=== PATIENT | female | born 1965 | race Caucasian/White ===

== ENCOUNTER 2020-04-28 11:34 | Inpatient (IN) | payer OTHER, MEDICAID ==
[~2020-04-28] VITALS: Ht 162.6 cm; Wt 89.4 kg
[2020-04-28] MEDS ORDERED: HALOPERIDOL LACTATE 5 MG/ML VIAL IM ONE (12:15)
[2020-04-28] MEDS ORDERED: LORazepam 2 MG/ML VIAL IM ONE (12:15)
[2020-04-28] MEDS ORDERED: GuaiFENesin/D-METHORPHAN [SUGAR-FREE] 200-20MG/10 ML SYRUP UDCUP PO PRN (14:00)
[2020-04-28] MEDS ORDERED: MAG HYDROX/AL HYDROX/SIMETH ES 30 ML SUSPENSION UDCUP PO PRN (14:00)
[2020-04-28] MEDS ORDERED: ZOLPIDEM TARTRATE 10 MG TABLET PO PRN (14:00)
[2020-04-28] MEDS ORDERED: HydrOXYzine PAMOATE 50 MG CAPSULE PO PRN (14:00)
[2020-04-28] MEDS ORDERED: MAGNESIUM HYDROXIDE SUSPENSION 30 ML UDCUP PO PRN (14:00)
[2020-04-28] MEDS ORDERED: LORazepam 2 MG TABLET PO PRN (14:00)
[2020-04-28] MEDS ORDERED: ACETAMINOPHEN 325 MG TABLET PO PRN (14:00)
[2020-04-28] MEDS ORDERED: OLANZapine 5 MG RAPDIS TABLET PO PRN (14:00)
[2020-04-28] MEDS ORDERED: PROMETHAZINE HCL 25 MG TABLET PO PRN (14:00)
[2020-04-28] MEDS ORDERED: TUBERCULIN, PURIFIED PROTEIN DERIVATIVE 5 TU/0.1 ML SYRINGE ID ONE (14:00)
[2020-04-28] MEDS ORDERED: LOPERAMIDE HCL 2 MG CAPSULE PO PRN (14:00)
[2020-04-28] MEDS ORDERED: PNEUMOCOCCAL VACCINE POLYVALENT 0.5 ML VIAL [PPSV23] IM ONE (16:15)
[2020-04-28] MEDS: THIAMINE 100 MG TABLET PO SCH (17:00)
[2020-04-28 17:35] VITALS: BP 123/81
[2020-04-28] MEDS: OLANZapine 5 MG RAPDIS TABLET PO SCH (21:00)
[2020-04-29 01:47] VITALS: BP 110/76
[2020-04-29 08:11] VITALS: BP 134/71
[2020-04-29] MEDS: THIAMINE 100 MG TABLET PO SCH ×2 (09:00→17:00)
[2020-04-29] MEDS: MULTIVITAMINS WITH MINERALS, THERAPEUTIC TABLET PO SCH (09:00)
[2020-04-29] MEDS: FOLIC ACID 1 MG TABLET PO SCH (09:00)
[2020-04-29] MEDS: FLUoxetine HCL 20 MG CAPSULE PO SCH (09:00)
[2020-04-29] MEDS: OLANZapine 5 MG RAPDIS TABLET PO SCH (21:00)
[2020-04-30] MEDS: THIAMINE 100 MG TABLET PO SCH ×2 (08:50→17:00)
[2020-04-30] MEDS: MULTIVITAMINS WITH MINERALS, THERAPEUTIC TABLET PO SCH (08:50)
[2020-04-30] MEDS: FOLIC ACID 1 MG TABLET PO SCH (08:50)
[2020-04-30] MEDS: FLUoxetine HCL 20 MG CAPSULE PO SCH (08:50)
[2020-04-30 16:13] VITALS: BP 141/93
[2020-04-30] MEDS: OLANZapine 5 MG RAPDIS TABLET PO SCH (21:00)
[2020-05-01 05:59] VITALS: BP 128/74
[2020-05-01] MEDS: FOLIC ACID 1 MG TABLET PO SCH (09:00)
[2020-05-01] MEDS: THIAMINE 100 MG TABLET PO SCH ×2 (09:00→17:00)
[2020-05-01] MEDS: FLUoxetine HCL 20 MG CAPSULE PO SCH (09:00)
[2020-05-01] MEDS: MULTIVITAMINS WITH MINERALS, THERAPEUTIC TABLET PO SCH (09:00)
[2020-05-01] MEDS: OLANZapine 5 MG RAPDIS TABLET PO SCH (21:00)
[2020-05-02] MEDS: MULTIVITAMINS WITH MINERALS, THERAPEUTIC TABLET PO SCH (08:39)
[2020-05-02] MEDS: FLUoxetine HCL 20 MG CAPSULE PO SCH (08:39)
[2020-05-02] MEDS: FOLIC ACID 1 MG TABLET PO SCH (08:39)
[2020-05-02] MEDS: THIAMINE 100 MG TABLET PO SCH ×3 (08:39→17:00)
[2020-05-02] MEDS: OLANZapine 5 MG RAPDIS TABLET PO SCH ×2 (20:26→20:33)
[2020-05-03 01:42] VITALS: BP 144/84
[2020-05-03] MEDS: MULTIVITAMINS WITH MINERALS, THERAPEUTIC TABLET PO SCH (09:00)
[2020-05-03] MEDS: THIAMINE 100 MG TABLET PO SCH ×2 (09:00→16:38)
[2020-05-03] MEDS: FOLIC ACID 1 MG TABLET PO SCH (09:00)
[2020-05-03] MEDS: FLUoxetine HCL 20 MG CAPSULE PO SCH (09:00)
[2020-05-03] MEDS: OLANZapine 5 MG RAPDIS TABLET PO SCH (20:19)
[2020-05-04] MEDS: MULTIVITAMINS WITH MINERALS, THERAPEUTIC TABLET PO SCH (09:00)
[2020-05-04] MEDS: FLUoxetine HCL 20 MG CAPSULE PO SCH (09:00)
[2020-05-04] MEDS: FOLIC ACID 1 MG TABLET PO SCH (09:00)
[2020-05-04] MEDS: THIAMINE 100 MG TABLET PO SCH ×2 (09:00→17:00)
[2020-05-04] MEDS: OLANZapine 5 MG RAPDIS TABLET PO SCH (20:52)
[2020-05-04] MEDS ORDERED: DiphenhydrAMINE HCL 25 MG CAPSULE PO SCH (21:00)
[2020-05-05 05:42] VITALS: BP 126/78
[2020-05-05 08:02] VITALS: BP 128/53
[2020-05-05] MEDS: FOLIC ACID 1 MG TABLET PO SCH (08:45)
[2020-05-05] MEDS: FLUoxetine HCL 20 MG CAPSULE PO SCH (08:46)
[2020-05-05] MEDS: MULTIVITAMINS WITH MINERALS, THERAPEUTIC TABLET PO SCH (08:46)
[2020-05-05] MEDS: THIAMINE 100 MG TABLET PO SCH (08:47)
[2020-05-05] MEDS ORDERED: FLUO-191 PO (09:38)
[2020-05-05] MEDS ORDERED: OLAN5TAB30 PO (09:38)
[2020-05-05] MEDS ORDERED: DIPH25 PO (09:38)
== END 2020-05-05 15:51 | disposition home or self-care (01) | DRG 885 ==
LOC: EMS 11:47 → B3A 13:59
PROVIDERS: ADMIT Psychiatry & Neurology Psychiatry; ATTEND Psychiatry & Neurology Psychiatry
DX: F25.9 Schizoaffective disorder, unspecified (principal); R45.851 Suicidal ideations; F15.90 Other stimulant use, unspecified, uncomplicated; F31.9 Bipolar disorder, unspecified; Z78.1 Physical restraint status; Z91.19 Patient's noncompliance with other medical treatment and regimen
CPT/HCPCS: 99291; J1630; J2060